=== PATIENT | male | born 1995 | race Caucasian/White ===

== ENCOUNTER 2017-02-14 20:03 | Emergency (ER) | payer OTHER ==
[~2017-02-14] VITALS: Ht 180.3 cm; Wt 80.9 kg
[~2017-02-14 20:03] MED LIST: BENT20TA PO; FERR325T3 PO; LIAL1.2T PO
[2017-02-14] MEDS ORDERED: OMEP20CA3 PO (20:12)
[2017-02-14] MEDS ORDERED: DICY10CA13 PO (20:12)
[2017-02-14] MEDS ORDERED: methylPREDNISolone INJ 125 MG/2 ML VIAL (J2930) IV ONE (21:30)
[2017-02-14] MEDS ORDERED: ONDANSETRON 4MG/2ML VIAL (J2405) IV ONE ×2 (21:30→23:00)
[2017-02-14 21:51] LABS: BASO # 0.1 K/mm3 (0.0-0.2); BASO % 0.7 % (0.0-1.0); EOS # 0.1 K/mm3 (0.0-0.50); EOS % 1.3 % (0.0-3.0); LARGE UNSTAINED CELL # 0.1 K/mm3 (0.0-0.4); LARGE UNSTAINED CELL % 0.9 % (0.0-4.0); LYMPH # 1.5 K/mm3 (1.5-6.5); LYMPH % 12.8 % (24.0-44.0); MEAN CORPUSCULAR HEMOGLOBIN 31.3 pg (27.0-33.0); MEAN CORPUSCULAR HGB CONC 34.5 g/dl (32.0-36.5); MEAN CORPUSCULAR VOLUME 90.5 fl (80.0-96.0); MONO # 0.8 K/mm3 (0.0-0.8); MONO % 7.1 % (0.0-5.0); NEUTROPHILS # 8.6 K/mm3 (1.8-7.7); NEUTROPHILS % 77.2 % (36.0-66.0); PLATELET COUNT, AUTOMATED 231 k/mm3 (150-450); RED CELL DISTRIBUTION WIDTH 12.9 % (11.5-14.5); WHITE BLOOD COUNT 11.1 K/mm3 (4.0-10.0)
[2017-02-14 22:14] LABS: ALBUMIN 4.5 GM/DL (3.2-5.2); ALBUMIN/GLOBULIN RATIO 1.45 (1.00-1.93); ALKALINE PHOSPHATASE 78 U/L (45-117); ALT/SGPT 46 U/L (12-78); AMYLASE 65 U/L (25-115); ANION GAP 5 MEQ/L (8-16); AST/SGOT 18 U/L (15-37); BLOOD UREA NITROGEN 15 MG/DL (7-18); CALCIUM LEVEL 9.8 MG/DL (8.5-10.1); CARBON DIOXIDE LEVEL 28 MEQ/L (21-32); CHLORIDE LEVEL 106 MEQ/L (98-107); CREATININE FOR GFR 0.94 MG/DL (0.70-1.30); GLUCOSE, FASTING 88 MG/DL (70-105); SODIUM LEVEL 139 MEQ/L (136-145); TOTAL PROTEIN 7.6 GM/DL (6.4-8.2)
[2017-02-14 22:32] LABS: ERYTHROCYTE SEDIMENTATION RATE 1 mm/hr (0-15)
[2017-02-14] MEDS ORDERED: KETOROLAC 30 MG/ML VIAL (J1885) IV ONE (23:00)
[2017-02-14 23:42] VITALS: BP 137/78
[2017-02-14] MEDS ORDERED: ZOFR4TAB3 PO (23:57)
[2017-02-14] MEDS ORDERED: ULTR50TA8 PO (23:57)
[2017-02-14] MEDS ORDERED: PRED20TA PO (23:58)
== END 2017-02-15 00:04 | disposition home or self-care (01) ==
LOC: M ED 20:03
DX: R10.84 Generalized abdominal pain (principal); R11.0 Nausea; K50.90 Crohn's disease, unspecified, without complications; Z79.899 Other long term (current) drug therapy
CPT/HCPCS: 80053; 81001; 82150; 83690; 85025; 85652; 86140; 96374; 96375; 96376; 99283; J1885; J2405; J2930

== ENCOUNTER 2017-02-25 11:07 | Inpatient (IN) | payer OTHER ==
[~2017-02-25] VITALS: Ht 180.3 cm; Wt 77.8 kg
[~2017-02-25 11:07] MED LIST changes: +DICY10CA13 PO; +OMEP20CA3 PO; +PRED20TA PO; +ULTR50TA8 PO; +ZOFR4TAB3 PO
[2017-02-25 12:11] LABS: MEAN CORPUSCULAR HEMOGLOBIN 31.8 pg (27.0-33.0); MEAN CORPUSCULAR HGB CONC 34.5 g/dl (32.0-36.5); MEAN CORPUSCULAR VOLUME 92.1 fl (80.0-96.0); RED CELL DISTRIBUTION WIDTH 12.8 % (11.5-14.5); WHITE BLOOD COUNT 11.2 K/mm3 (4.0-10.0)
[2017-02-25] MEDS ORDERED: LIAL1.2T PO (12:35)
[2017-02-25 12:55] LABS: METHADONE URINE NEGATIVE (NEGATIVE)
[2017-02-25 13:00] LABS: ALBUMIN 4.6 GM/DL (3.2-5.2); ALBUMIN/GLOBULIN RATIO 1.53 (1.00-1.93); ALKALINE PHOSPHATASE 76 U/L (45-117); ALT/SGPT 34 U/L (12-78); ANION GAP 9 MEQ/L (8-16); AST/SGOT 16 U/L (15-37); BILIRUBIN,DIRECT 0.4 MG/DL (0.0-0.2); BILIRUBIN,TOTAL 2.8 MG/DL (0.2-1.0); BLOOD UREA NITROGEN 17 MG/DL (7-18); CALCIUM LEVEL 9.9 MG/DL (8.5-10.1); CARBON DIOXIDE LEVEL 29 MEQ/L (21-32); CHLORIDE LEVEL 102 MEQ/L (98-107); CREATININE FOR GFR 1.14 MG/DL (0.70-1.30); GLUCOSE, FASTING 96 MG/DL (70-105); POTASSIUM SERUM 4.5 MEQ/L (3.5-5.1); SODIUM LEVEL 140 MEQ/L (136-145); TOTAL PROTEIN 7.6 GM/DL (6.4-8.2)
[2017-02-25 18:20] VITALS: BP 135/83
[2017-02-25] MEDS ORDERED: ACETAMINOPHEN TAB 650MG DOSE (2X325MG) PO PRN (18:30)
[2017-02-25] MEDS ORDERED: MOM 30ML SUSPENSION UDC PO PRN (18:30)
[2017-02-25] MEDS ORDERED: MAALOX 30 ML SUSP *UDC PO PRN (18:30)
[2017-02-25] MEDS ORDERED: traZODone 50 MG TAB PO PRN (18:30)
[2017-02-26 06:23] VITALS: BP 135/82
--- NOTE | 2017-02-26 09:37 | HPEPDOC ---
Medical History and Physical Date of Admission Feb 25, 2017 at 17:36 History and Physical PCP: [facility] ATTENDING: Dr. Earl Dillon HPI: 21yoM admitted to [facility] for MDD, being medically examined today. No acute medical complaints today. Patient continues to follow with Dr. Rucker for his Crohn's disease. States he had a recent flareup and was treated with course of prednisone which he recently discontinued. Patient states his symptoms are resolved. He denies abdominal pain, nausea, vomiting, diarrhea, constipation. He states he is eating and drinking normally. Denies any fevers, chills, weakness, fatigue, MILLS, CP, SOB, cough, palpitations, changes in bowel or bladder habits. PMHx: Crohn's disease-follows with Dr. Rucker Iron deficiency anemia GERD Depression History of SI Transgender PSHX: Colonoscopy 06/13/16-Crohn's with ileitis-Chaim SOCHX: Resides in: [place], from [facility] Marital Status: Single Kids: None Employment: Active duty Tobacco use: Denies ETOH: Denies Illicit Drugs: Denies IV Drug Use: Denies Tattoos done unprofessionally: Denies FAMHX: Mother: Alive, estranged Father: Alive, well Siblings: Alive, well Children: None Unexpected deaths due to medical reasons: None. ROS: As noted in HPI, otherwise 11pt ROS of systems reviewed and unremarkable. Patient states his Crohn's is controlled. PE: GEN: 21 yo M, appears stated age. Well-nourished, well developed. No acute distress. Alert and oriented x 3. Pleasant, interactive. HEENT: Normocephalic, atraumatic. Pupils are equal, round, and reactive to light. Extraocular movements are intact. No nystagmus appreciated. Sclera are nonicteric. Conjunctiva without injection. Nose midline. Nasal turbinates without bogginess. EACs both patent BL. TMs both visualized and banda with good cone of light, no bulging or erythema. No facial asymmetry. Moist mucous membranes. Dentition fair. Pharynx pink and moist, no cobblestoning. Neck supple , trachea midline. No lymphadenopathy or thyromegaly appreciated. CHEST: Regular rate and rhythm, +S1, +S2 LUNGS: Clear to auscultation bilaterally. No wheezes, rales, or rhonchi. Breathing appears symmetric and easy. Patient is speaking in full sentences. No accessory muscle use. ABD: Round, soft, non-tender, non-distended. +Bowel sounds throughout. No rebound or guarding. No costovertebral angle tenderness. EXT: Pulses 2+ bilaterally dorsalis pedis and radial. No lower extremity edema appreciated. SKIN: Aquilla, dry, warm. Capillary refill <2sec. No rashes. NEURO: Alert and oriented x 3. Cranial nerves III-XII are intact. No focal deficits appreciated. EKG: pending A&P: 21yoM admitted to [facility] for MDD 1. Psych. Plan per Psychiatry. EKG pending. 2. Crohn's disease. Follows with Dr. Rucker. Patient states has been controlled on Lialda 1.2 g 3 tabs once daily. 3. Leukocytosis. Patient is asymptomatic. Afebrile. Possibly related to recent course of prednisone. Recheck CBC in a.m. 4. Follow up with PCP on discharge. [facility]. 5. GERD. Continue Prilosec 40 mg daily. 6. History of iron deficiency anemia. Hemoglobin within normal limits. 7. Staff member Ramon present throughout exam. Vital Signs Vital Signs Date Time Temp Pulse Resp B/P (MAP) Pulse Ox O2 Delivery O2 Flow Rate FiO2 02/26/17 06:23 99.0 87 16 135/82 (99) 02/25/17 18:20 98 Room Air Laboratory Data Labs 24H Laboratory Tests 2 02/25/17 11:59: Anion Gap 9, Calcium Level 9.9, Aspartate Amino Transf (AST/SGOT) 16, Alanine Aminotransferase (ALT/SGPT) 34, Alkaline Phosphatase 76, Total Bilirubin 2.8H, Direct Bilirubin 0.4H, Total Protein 7.6, Albumin 4.6, Albumin/Globulin Ratio 1.53, Thyroid Stimulating Hormone (TSH) 1.220, Salicylates Level < 1.7L, Urine Amphetamines Screen NEGATIVE, Urine Benzodiazepines Screen NEGATIVE, Urine Opiates Screen NEGATIVE, Urine Methadone Screen NEGATIVE, Acetaminophen Level < 2.0L, Urine Barbiturates Screen NEGATIVE, Urine Phencyclidine Screen NEGATIVE, Urine Cocaine Metabolite Screen NEGATIVE, Urine Cannabinoids Screen NEGATIVE, Ethyl Alcohol Level 0.003 CBC/BMP Laboratory Tests 02/25/17 11:59 Red Blood Count 5.07, Mean Corpuscular Volume 92.1, Mean Corpuscular Hemoglobin 31.8, Mean Corpuscular Hemoglobin Concent 34.5, Red Cell Distribution Width 12.8 Home Medications Scheduled Mesalamine (Lialda) 1.2 Gm Tab, 3.6 GM PO DAILY Omeprazole (Omeprazole) 20 Mg Cap, 40 CAP PO DAILY Allergies Coded Allergies: No Known Allergies (Unverified , 02/25/17) Courtney Knowles Feb 26, 2017 09:36
[2017-02-26] MEDS: OMEPRAZOLE 20 MG CAP PO SCH (09:44)
[2017-02-26 18:10] VITALS: BP 131/79
--- NOTE | 2017-02-26 20:26 | MHHPE ---
DATE OF ADMISSION: 02/25/2017 CURRENT MEDICATIONS: None. CHIEF COMPLAINT: Depression with suicidal plan by hanging. HISTORY OF THE PRESENT ILLNESS: This is a 21-year-old white male, active duty [employer], who presented to [facility], crisis walk-in service, with depression and suicidal ideation. The patient has reported feeling depression recently. He felt lonely this weekend. Many of his friends are deployed overseas. His plans to have a transgender transformation are on hold. He just failed his PT test. He had a recent relapse of his Crohn's disease. The patient has been on two courses of prednisone, which was just weaned off this past weekend. All day Saturday he struggled imaging various scenarios of suicide and how his family would react to it. He did reach out to friends and get some social support. His appetite has been good recently. His weight is stable. His level of energy is good. His concentration is fine. He does get pleasure out of life. He is sleeping well at night, he reports. He denies a history of monroe. His mother has a history of bipolar disorder, but the patient himself has never had any manic episodes. He does have a history of gender dysphoria with plans for the gender transformation placed on hold recently, which has been frustrating for the patient. The patient had been hospitalized here at [facility] last July with depression and an overdose of alcohol and cough medicine. The patient was hospitalized briefly. He was not given antidepressants and was discharged back to [place]. The patient apparently went to outpatient mental health services for a number of months for psychotherapy but never received any psychotropics. The patient is resistant to such a trial while here in the hospital. The patient denies a history of panic attacks or agoraphobia. He denies a history of worry or obsessive-compulsive disorder (OCD) symptoms. He does report some social phobic symptoms, public speaking has always been hard for him. He dislikes groups and feels awkward and out of place. PAST PSYCHIATRIC HISTORY: Please see above. Patient denies any previous psychiatric history before joining the 2 years ago. MEDICAL HISTORY: Crohn's disease. SURGICAL HISTORY: Patient denies. ALLERGIES: Patient denies. LEGAL ISSUES: None noted. CHEMICAL DEPENDENCY: None aside from an overdose of alcohol and cough medicine. SOCIAL HISTORY: The patient was born and raised on [place]. His parents are . His mother is bipolar. He has no relationship with her. The patient was raised by his father. He has two brothers and one sister. Relationship with them is good. The patient was a good student in high school and joined the right out of high school. 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 FAMILY PSYCHIATRIC HISTORY: Mother is bipolar. MENTAL STATUS EXAMINATION: The patient is alert, oriented and cooperative. The patient has had recent suicidal ideations. The patient minimizes any depressive symptoms here today. He denies being a danger to self or others. He denies any psychotic symptoms. Grooming and hygiene appear quite good. No signs of panic attacks, obsessions or rituals. He does report some social phobic behavior. Insight and judgment appear fair. No signs of psychosis. No signs of impulsivity. No signs of cognitive deficits. ASSESSMENT: Patient resistant to any psychotropics, but might benefit from an selective serotonin reuptake inhibitor. The case will be coordinated with his outpatient therapist at [place]. The patient did have a recent course of prednisone, which might have contributed to depressive symptoms during the weaning off process. It is interesting to note the patient did not have any manic symptoms, however, while on the prednisone. This will be monitored and further evaluated. DIAGNOSES: Major depression, recurrent. Gender dysphoria, F64.1. PLAN: Encourage the patient to be involved in hospital milieu, 9.39 confirmed. Possible trial on selective serotonin reuptake inhibitor. The case will be coordinated with outpatient counselor.
--- NOTE | 2017-02-26 21:44 | ECGEPIP ---
Stationary ECG Study [facility] Test Date: 2017-02-26 Pat Name: TRAN OCHOA Department: Room: [place] [address] Gender: M Medical Transcription Supervisor: : [id number] Requested By: Courtney Knowles Order Number: [id number] Reading MD: Earl Dillon Measurements Intervals [place] Rate: 79 P: 62 [place]: 120 QRS: 80 QRSD: 86 T: 38 QT: 341 QTc: 391 Interpretive Statements SINUS RHYTHM POSSIBLE LEFT ATRIAL ENLARGEMENT Electronically Signed On 02-26-2017 21:44:23 EDT by Earl Dillon
[2017-02-27 06:48] VITALS: BP 127/79
[2017-02-27 07:24] LABS: MEAN CORPUSCULAR HEMOGLOBIN 31.3 pg (27.0-33.0); MEAN CORPUSCULAR HGB CONC 33.7 g/dl (32.0-36.5); RED CELL DISTRIBUTION WIDTH 12.7 % (11.5-14.5); WHITE BLOOD COUNT 10.2 K/mm3 (4.0-10.0)
[2017-02-27] MEDS: OMEPRAZOLE 20 MG CAP PO SCH (09:31)
[2017-02-27 18:30] VITALS: BP 127/72
[2017-02-28 06:45] VITALS: BP 124/66
[2017-02-28] MEDS: OMEPRAZOLE 20 MG CAP PO SCH (08:21)
--- NOTE | 2017-02-28 13:41 | MHIPN ---
DATE: 02/27/2017 VITAL SIGNS: Temperature 97.7, pulse 92, respirations 20, blood pressure 127/ 79. CURRENT MEDICATIONS: - trazodone 50 mg at bedtime as needed HISTORY OF PRESENT ILLNESS: Patient states that his mood is better. He feels more positive about the future. He is denying any suicidal ideation. His first sergeant visited. The Business Development Agent visited as well. He appreciates the support. His appetite is good. He slept well last night. He is resistant to taking any antidepressants. He is going to the groups though with some reluctance. He is encouraged to be involved in the milieu therapy. His therapist is contacted back at [facility]. She has not seen him for several months now and has no opinion regarding his safety or lethality potential. According to the referral records, however, [facility] staff were very concerned about his suicide potential at the time of referral. Patient himself minimizes any depressive symptoms and feels he does not need to be here. Patient had been on a prednisone steroid taper the weekend of admission which may have contributed to his dysphoria. Patient is encouraged to remain involved in the hospital milieu to monitor his mood and assess his safety profile. MENTAL STATUS EXAMINATION: Mood and affect appear fairly good. Anxiety is minimal. He denies being suicidal. Grooming and hygiene is quite good. He is not psychotic, not hearing voices, no paranoia or thought disorder. No signs of impulsivity, frustration tolerance appears fair. No signs of organicity. DIAGNOSIS: Major depression, recurrent. Gender dysphoria. PLAN: Encourage hospital milieu involvement. Patient needs to be monitored further for any potential signs of dangerousness in my opinion especially if he is resistant to a trial on psychotropics. DIANNE
[2017-02-28 18:00] VITALS: BP 132/81
[2017-03-01 06:31] VITALS: BP 125/72
[2017-03-01] MEDS: LIALDA 1.2 GM PO SCH (08:03)
[2017-03-01] MEDS: OMEPRAZOLE 20 MG CAP PO SCH (08:03)
[2017-03-01] MEDS ORDERED: hydrOXYzine 25 MG TAB PO PRN (10:45)
--- NOTE | 2017-03-01 10:59 | MHIPN ---
DATE: 02/28/2017 VITAL SIGNS: Temperature 98.1, pulse 86, respirations 18, blood pressure 124/66. CURRENT MEDICATIONS: None. HISTORY OF PRESENT ILLNESS: The patient states that he is going to all the groups. He states that his mood has been good. His appetite has been fine. He denies any sleep issues. He feels positive about the future. He is aware that the president has made comments that transgender individuals will not be able to receive sexual assignment surgery and/or be kept in the [employer]. [facility] staff called in to speak to the child welfare social worker staff concerned about this change and the development. The patient is aware of the news in this area. He reports that it is "not the end of the world." He feels hopeful about the future. Either way, he does have plans for the future. He plans to go to college, for example, and move on with his life. He still has no interest in taking any psychotropics. Chain of command meeting is scheduled for Saturday. MENTAL STATUS EXAMINATION: The patient is awake, alert and cooperative. Affect appears reasonably good. He denies any depression. Anxiety is minimal. Not hearing voices. No signs of paranoia or thought disorder. Grooming and hygiene is good. No signs of dangerousness. ASSESSMENT: The patient denies any major reactions to the negative news about transgender individuals. He appears to be coping reasonably well. DIAGNOSES: 1. Major depression, recurrent. 2. Gender dysphoria. PLAN: Involve in hospital milieu. Chain of command meeting scheduled for Saturday with tentative discharge afterwards if the patient does well over the weekend.
[2017-03-01 18:00] VITALS: BP 123/71
[2017-03-02 06:40] VITALS: BP 121/63
[2017-03-02] MEDS: LIALDA 1.2 GM PO SCH (09:54)
[2017-03-02] MEDS: OMEPRAZOLE 20 MG CAP PO SCH (09:54)
--- NOTE | 2017-03-02 13:50 | IPN ---
DATE: 03/01/2017 VITAL SIGNS: Temperature 97.7, pulse 70, respirations 16, blood pressure 125/72. CURRENT MEDICATIONS: - trazodone 50 mg nightly as needed HISTORY OF THE PRESENT ILLNESS: The patient still refuses any antidepressants. He has been quite social in the milieu. He is attending groups. He states his mood is much improved. Denies any suicidal ideation. He has been frustrated by the lack of progress regarding the sexual assignment treatment plan. 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 The patient states that he is positive about his future whether he gets this treatment in the or after he is discharged. He has goals of going back to school at [employer] on [address]. The patient states he does have issues with dysphoria about his gender issues at times, especially on weekends. We discussed various strategies and how to cope with this. The patient will be prescribed a medium dose of Atarax to help as an as needed. He was encouraged to maintain treatment at [facility] upon discharge and to keep an open mind about a possible trial on an antidepressant/antianxiety agent. MENTAL STATUS EXAMINATION: The patient is alert, oriented and cooperative. He reports some mild anxiety. Dysphoria is minimal. He is not overtly depressed, not suicidal. Judgment appears good. Grooming and hygiene appear quite good. No signs of dangerousness. ASSESSMENT: The patient continues to wish to deal with his issues psychologically and not pharmacologically. DIAGNOSIS: Major depression, recurrent. Gender dysphoria. PLAN: Continue treatment in the hospital milieu. Chain of command meeting scheduled for Saturday. Patient given Atarax as needed for anxiety, if needed.
[2017-03-02 18:19] VITALS: BP 121/70
[2017-03-03 06:12] VITALS: BP 114/66
[2017-03-03] MEDS: OMEPRAZOLE 20 MG CAP PO SCH (07:49)
[2017-03-03] MEDS: LIALDA 1.2 GM PO SCH (07:49)
[2017-03-03 18:28] VITALS: BP 136/73
[2017-03-04 06:38] VITALS: BP 128/70
[2017-03-04] MEDS: OMEPRAZOLE 20 MG CAP PO SCH (08:06)
[2017-03-04] MEDS: LIALDA 1.2 GM PO SCH (08:07)
--- NOTE | 2017-03-05 13:24 | MHDS ---
DATE OF ADMISSION: 02/25/2017 DATE OF DISCHARGE: 03/04/2017 VITAL SIGNS: Temperature 98.1, pulse 88, respirations 19, blood pressure 128/70. LABORATORY DATA: CBC and differential normal except for elevated WBC at 10.2. Chem survey within normal limits except for elevated total bilirubin at 2.8 and direct bilirubin at 0.4. Toxicology screen was negative. MEDICATIONS ON DISCHARGE: None. DISCHARGE DIAGNOSES: 1. Adjustment disorder with depressed mood. 2. Gender dysphoria. CHIEF COMPLAINT: Depression with suicidal thoughts of hanging. 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 He had felt depressed over the previous 24 hours with thoughts of hanging himself. The patient had felt lonely this previous weekend prior to admission, many of his friends were deployed overseas. His plans to have a transgender transformation have been on hold. This is frustrating for him. He just failed his PT test. He just had a recent relapse of his Crohn's disease. The patient had just been on two courses of prednisone, which was just weaned off the previous weekend prior to admission, which may have contributed to his depression. He did reach out to friends for help and was brought to the walk in crisis service and then sent to the emergency room. He states that his appetite has been good recently. His weight is stable. His level of energy was good. His concentration is fine. He reports getting pleasure out of life. He sleeps well at night. No history of monroe. He does have a history of gender dysphoria, which is his major precipitating stressor. The karine was hospitalized here at [facility] last July with depression and overdose of alcohol and cough medicine. The patient was hospitalized briefly but was not given medication and was discharged back to [facility]. He saw the therapist for many months but eventually therapy was terminated. PROGRESS ON THE UNIT: The patient was upset about being hospitalized, claiming that it was not necessary. The patient did find the hospital milieu therapy program helpful; however, he did have good attendance and socialized well with his peers. He showed no signs of depression while on the unit. He denied any suicidal ideation or plans. He was hopeful about the future. There was a report on the news that the president had plans to discharge transgender troops. The patient was aware of the news but stated that it was not "the end of the world." He felt hopeful about the future, whether in the [employer] or without. He does plans to go back to college and get his Bachelor's degree once he leaves the . He was informed by the [facility] medical staff that he has an appointment in March with the journeyman molder regarding the transgender procedure. He felt optimistic about this. He refused any psychotropics and did not appear to require any. He was given Atarax as needed, but claims that it was not well tolerated. His appetite was good on the unit. He slept well. He reached maximal hospital benefit with plans for discharge. MENTAL STATUS EXAMINATION: At the time of discharge, mood and affect appeared good. Affect was bright. He had full range of affect. He had no suicidal thoughts. No homicidal thoughts either. He was not psychotic. Not hearing voices. Not paranoid or thought disorder. Grooming and hygiene was quite good. PLAN: Followup at [facility].
== END 2017-03-04 10:15 | disposition home or self-care (01) | DRG 881 ==
LOC: M ED 11:07 → M ED INP 17:36 → M PSY 18:22
PROVIDERS: ADMIT Psychiatry & Neurology Psychiatry; ATTEND Psychiatry & Neurology Psychiatry
DX: F43.21 Adjustment disorder with depressed mood (principal); K50.90 Crohn's disease, unspecified, without complications; F64.0 Transsexualism; D50.9 Iron deficiency anemia, unspecified; K21.9 Gastro-esophageal reflux disease without esophagitis; Z79.899 Other long term (current) drug therapy

== ENCOUNTER 2017-06-03 14:28 | Outpatient (RCR) | payer OTHER | END 2017-06-04 | LOC: M ST 14:28 | PROVIDERS: ATTEND Family Medicine | DX: Z51.89 Encounter for other specified aftercare (principal); F64.9 Gender identity disorder, unspecified | CPT/HCPCS: 92507; 92524; G9171; G9172 ==

== ENCOUNTER 2017-07-03 14:00 | Outpatient (RCR) | payer OTHER | END 2017-07-04 | LOC: M ST 14:00 | PROVIDERS: ATTEND Family Medicine | DX: F64.9 Gender identity disorder, unspecified (principal) ==

== ENCOUNTER 2017-07-11 14:01 | Outpatient (RCR) | payer OTHER | END 2017-08-04 | LOC: M ST 14:01 | DX: F64.9 Gender identity disorder, unspecified (principal) | CPT/HCPCS: 92507 ==

== ENCOUNTER 2017-08-07 14:07 | Outpatient (RCR) | payer OTHER | END 2017-09-04 | LOC: M ST 14:07 | DX: F64.9 Gender identity disorder, unspecified (principal) | CPT/HCPCS: 92507 ==

== ENCOUNTER 2017-09-11 13:59 | Outpatient (RCR) | payer OTHER | END 2017-10-02 | LOC: M ST 13:59 | DX: F64.9 Gender identity disorder, unspecified (principal) | CPT/HCPCS: 92507 ==

== ENCOUNTER 2017-09-20 06:50 | Emergency (ER) | payer OTHER ==
[2017-09-20] MEDS: NS 1,000 ML IV (08:00)
[2017-09-20 08:11] LABS: BASO # 0.1 10^3/uL (0.0-0.2); BASO % 0.5 % (0.0-1.0); EOS # 0.1 10^3/uL (0.0-0.50); EOS % 0.5 % (0.0-3.0); HEMATOCRIT 38.2 % (42.0-52.0); HEMOGLOBIN 13.1 g/dl (14.0-18.0); IMMATURE GRANULOCYTE % 0.4 % (0-3.0); LYMPH # 0.9 10^3/uL (1.5-6.5); LYMPH % 7.4 % (24.0-44.0); MEAN CORPUSCULAR HEMOGLOBIN 30.9 pg (27.0-33.0); MEAN CORPUSCULAR HGB CONC 34.3 g/dl (32.0-36.5); MEAN CORPUSCULAR VOLUME 90.1 fl (80.0-96.0); MONO # 0.7 10^3/uL (0.0-0.8); MONO % 5.9 % (0.0-5.0); NEUTROPHILS # 10.6 10^3/uL (1.8-7.7); NEUTROPHILS % 85.3 % (36.0-66.0); PLATELET COUNT, AUTOMATED 275 10^3/uL (150-450); RED BLOOD COUNT 4.24 10^6/uL (4.30-6.10); RED CELL DISTRIBUTION WIDTH 12.5 % (11.5-14.5); WHITE BLOOD COUNT 12.5 10^3/uL (4.0-10.0)
[2017-09-20 08:15] LABS: KETONE, URINE AUTO RFX NEGATIVE (NEGATIVE); LEUKOCYTE ESTERASE UR AUTO RFX NEGATIVE (NEGATIVE); MUCUS, URINE RFX SMALL (NEGATIVE); NITRITE, URINE AUTO RFX NEGATIVE (NEGATIVE); RBC, URINE AUTO RFX 1 /HPF (0-3); SPECIFIC GRAVITY UR AUTO RFX 1.016 (1.002-1.035); SQUAM EPITHELIAL CELL UR AURFX 0 /HPF (0-6); WBC, URINE AUTO RFX 1 /HPF (0-3)
[2017-09-20 08:28] LABS: ALBUMIN 4.5 GM/DL (3.2-5.2); ALBUMIN/GLOBULIN RATIO 1.29 (1.00-1.93); ALKALINE PHOSPHATASE 52 U/L (45-117); ALT/SGPT 33 U/L (12-78); ANION GAP 7 MEQ/L (8-16); AST/SGOT 17 U/L (7-37); BILIRUBIN,DIRECT 0.2 MG/DL (0.0-0.2); BLOOD UREA NITROGEN 14 MG/DL (7-18); CALCIUM LEVEL 9.2 MG/DL (8.5-10.1); CARBON DIOXIDE LEVEL 28 MEQ/L (21-32); CHLORIDE LEVEL 104 MEQ/L (98-107); CREATININE FOR GFR 0.79 MG/DL (0.70-1.30); GLOMERULAR FILTRATION RATE > 60.0 (>60); GLUCOSE, FASTING 99 MG/DL (70-100); LIPASE 114 U/L (73-393); POTASSIUM SERUM 4.2 MEQ/L (3.5-5.1); SODIUM LEVEL 139 MEQ/L (136-145)
[2017-09-20] MEDS ORDERED: ISOVUE-370 76% 100ML VIAL (Q9967) As Ordered (08:41)
== END 2017-09-20 09:50 | disposition home or self-care (01) ==
LOC: M ED 06:50
DX: A08.4 Viral intestinal infection, unspecified (principal); K50.90 Crohn's disease, unspecified, without complications; F41.9 Anxiety disorder, unspecified; K21.9 Gastro-esophageal reflux disease without esophagitis; Z79.899 Other long term (current) drug therapy
CPT/HCPCS: Q9967

== ENCOUNTER 2017-12-22 22:55 | Inpatient (IN) | payer OTHER ==
[2017-12-22 23:41] LABS: HEMOGLOBIN 12.7 g/dl (13.5-17.5); MEAN CORPUSCULAR HGB CONC 34.3 g/dl (32.0-36.5); MEAN CORPUSCULAR VOLUME 90.2 fl (80.0-96.0); PLATELET COUNT, AUTOMATED 260 10^3/uL (150-450); RED CELL DISTRIBUTION WIDTH 11.9 % (11.5-14.5); WHITE BLOOD COUNT 11.6 10^3/uL (4.0-10.0)
[2017-12-23 00:06] LABS: AMPHETAMINES LEVEL URINE NEGATIVE (NEGATIVE); BARBITURATES URINE NEGATIVE (NEGATIVE); BENZODIAZEPINES URINE NEGATIVE (NEGATIVE); CANNABINOIDS URINE NEGATIVE (NEGATIVE); COCAINE METABOLITE URINE NEGATIVE (NEGATIVE); METHADONE URINE NEGATIVE (NEGATIVE); OPIATES URINE NEGATIVE (NEGATIVE); PHENCYCLIDINE URINE NEGATIVE (NEGATIVE)
[2017-12-23 00:15] LABS: ALBUMIN 4.1 GM/DL (3.2-5.2); ALBUMIN/GLOBULIN RATIO 1.24 (1.00-1.93); ALKALINE PHOSPHATASE 54 U/L (45-117); ALT/SGPT 36 U/L (12-78); ANION GAP 6 MEQ/L (8-16); AST/SGOT 18 U/L (7-37); BILIRUBIN,DIRECT 0.1 MG/DL (0.0-0.2); BILIRUBIN,TOTAL 0.5 MG/DL (0.2-1.0); BLOOD UREA NITROGEN 8 MG/DL (7-18); CARBON DIOXIDE LEVEL 29 MEQ/L (21-32); CHLORIDE LEVEL 108 MEQ/L (98-107); CREATININE FOR GFR 0.83 MG/DL (0.70-1.30); ETHYL ALCOHOL (ETHANOL) 0.141 % (0.000-0.010); GLOMERULAR FILTRATION RATE > 60.0 (>60); GLUCOSE, FASTING 109 MG/DL (70-100); POTASSIUM SERUM 4.2 MEQ/L (3.5-5.1); SALICYLATE LEVEL < 1.7 MG/DL (5.0-30.0); SODIUM LEVEL 143 MEQ/L (136-145); TOTAL PROTEIN 7.4 GM/DL (6.4-8.2)
[2017-12-23 00:18] LABS: ACETAMINOPHEN LEVEL < 2.0 UG/ML (10.0-30.0)
[2017-12-23] MEDS ORDERED: traZODone 50 MG TAB PO (03:00)
[2017-12-23] MEDS ORDERED: LORazepam 2 MG TAB PO (03:00)
[2017-12-23] MEDS ORDERED: MOM 30ML SUSPENSION UDC PO (03:00)
[2017-12-23] MEDS ORDERED: ACETAMINOPHEN TAB 650MG DOSE (2X325MG) PO (03:00)
[2017-12-23] MEDS ORDERED: MAALOX 30 ML SUSP *UDC PO (03:00)
[2017-12-23] MEDS: MULTIVITAMINS/MINERALS THERAP 1 TAB PO (08:23)
[2017-12-23] MEDS: THIAMINE 100 MG TAB PO ×2 (08:23→20:06)
[2017-12-23] MEDS: FOLIC ACID 1 MG TAB PO (08:23)
[2017-12-23] MEDS: ESTRADIOL 1 MG TAB PO ×2 (08:24→20:06)
[2017-12-23] MEDS: SPIRONOLACTONE 50 MG TAB PO ×2 (08:24→20:06)
[2017-12-23] MEDS ORDERED: ESTRADIOL 1 MG TAB PO ×3 (09:00)
[2017-12-24] MEDS: THIAMINE 100 MG TAB PO (07:56)
[2017-12-24] MEDS: SPIRONOLACTONE 50 MG TAB PO (07:56)
[2017-12-24] MEDS: FOLIC ACID 1 MG TAB PO (07:56)
[2017-12-24] MEDS: MULTIVITAMINS/MINERALS THERAP 1 TAB PO (07:56)
[2017-12-24] MEDS: ESTRADIOL 1 MG TAB PO (07:57)
[2017-12-24 09:29] LABS: HEMATOCRIT 38.7 % (42.0-52.0); HEMOGLOBIN 13.1 g/dl (13.5-17.5); MEAN CORPUSCULAR HEMOGLOBIN 30.8 pg (27.0-33.0); MEAN CORPUSCULAR HGB CONC 33.9 g/dl (32.0-36.5); MEAN CORPUSCULAR VOLUME 91.1 fl (80.0-96.0); PLATELET COUNT, AUTOMATED 283 10^3/uL (150-450); RED BLOOD COUNT 4.25 10^6/uL (4.30-6.10); RED CELL DISTRIBUTION WIDTH 12.1 % (11.5-14.5); WHITE BLOOD COUNT 11.9 10^3/uL (4.0-10.0)
== END 2017-12-24 10:25 | disposition home or self-care (01) | DRG 881 ==
LOC: M ED 22:55 → M ED INP 12-23 02:53 → M PSY 12-23 03:17
DX: F43.21 Adjustment disorder with depressed mood (principal); F10.10 Alcohol abuse, uncomplicated; F64.9 Gender identity disorder, unspecified; K21.9 Gastro-esophageal reflux disease without esophagitis; D50.9 Iron deficiency anemia, unspecified; K52.9 Noninfective gastroenteritis and colitis, unspecified; F41.9 Anxiety disorder, unspecified; D72.829 Elevated white blood cell count, unspecified; Z79.899 Other long term (current) drug therapy

== ENCOUNTER 2018-01-22 13:53 | Inpatient (IN) | payer OTHER ==
[2018-01-22 17:33] LABS: HEMATOCRIT 38.2 % (42.0-52.0); HEMOGLOBIN 13.3 g/dl (13.5-17.5); MEAN CORPUSCULAR HEMOGLOBIN 31.1 pg (27.0-33.0); MEAN CORPUSCULAR HGB CONC 34.8 g/dl (32.0-36.5); MEAN CORPUSCULAR VOLUME 89.5 fl (80.0-96.0); PLATELET COUNT, AUTOMATED 304 10^3/uL (150-450); RED BLOOD COUNT 4.27 10^6/uL (4.30-6.10); RED CELL DISTRIBUTION WIDTH 12.3 % (11.5-14.5); WHITE BLOOD COUNT 13.2 10^3/uL (4.0-10.0)
[2018-01-22 17:51] LABS: AMPHETAMINES LEVEL URINE NEGATIVE (NEGATIVE); BARBITURATES URINE NEGATIVE (NEGATIVE); BENZODIAZEPINES URINE NEGATIVE (NEGATIVE); CANNABINOIDS URINE NEGATIVE (NEGATIVE); COCAINE METABOLITE URINE NEGATIVE (NEGATIVE); METHADONE URINE NEGATIVE (NEGATIVE); OPIATES URINE NEGATIVE (NEGATIVE); PHENCYCLIDINE URINE NEGATIVE (NEGATIVE)
[2018-01-22 18:03] LABS: ALBUMIN 4.3 GM/DL (3.2-5.2); ALBUMIN/GLOBULIN RATIO 1.26 (1.00-1.93); ALKALINE PHOSPHATASE 61 U/L (45-117); ALT/SGPT 44 U/L (12-78); ANION GAP 10 MEQ/L (8-16); AST/SGOT 23 U/L (7-37); BILIRUBIN,DIRECT 0.2 MG/DL (0.0-0.2); BILIRUBIN,TOTAL 0.7 MG/DL (0.2-1.0); BLOOD UREA NITROGEN 17 MG/DL (7-18); CALCIUM LEVEL 9.2 MG/DL (8.5-10.1); CARBON DIOXIDE LEVEL 28 MEQ/L (21-32); CHLORIDE LEVEL 103 MEQ/L (98-107); CREATININE FOR GFR 0.94 MG/DL (0.70-1.30); ETHYL ALCOHOL (ETHANOL) < 0.003 % (0.000-0.010); GLOMERULAR FILTRATION RATE > 60.0 (>60); GLUCOSE, FASTING 93 MG/DL (70-100); POTASSIUM SERUM 4.6 MEQ/L (3.5-5.1); SALICYLATE LEVEL < 1.7 MG/DL (5.0-30.0); SODIUM LEVEL 141 MEQ/L (136-145); TOTAL PROTEIN 7.7 GM/DL (6.4-8.2)
[2018-01-22 18:44] LABS: ACETAMINOPHEN LEVEL < 2.0 UG/ML (10.0-30.0)
[2018-01-22] MEDS: ESTRADIOL 1 MG TAB PO (21:00)
[2018-01-22] MEDS ORDERED: AQUAPHOR PR (23:30)
[2018-01-22] MEDS ORDERED: NITROGLYCERIN PR (23:30)
[2018-01-22] MEDS ORDERED: OLANZapine ORAL DISINTEGRATING TAB 5MG PO (23:30)
[2018-01-22] MEDS ORDERED: MOM 30ML SUSPENSION UDC PO (23:30)
[2018-01-22] MEDS ORDERED: ACETAMINOPHEN TAB 650MG DOSE (2X325MG) PO (23:30)
[2018-01-22] MEDS ORDERED: MAALOX 30 ML SUSP *UDC PO (23:30)
[2018-01-23] MEDS: ESTRADIOL 1 MG TAB PO ×2 (08:54→21:15)
[2018-01-23] MEDS: SPIRONOLACTONE 50 MG TAB PO ×2 (08:54→21:15)
[2018-01-23] MEDS: SERTRALINE HCL 50 MG TAB PO (12:40)
[2018-01-24 07:33] LABS: HEMATOCRIT 35.5 % (42.0-52.0); HEMOGLOBIN 12.6 g/dl (13.5-17.5); MEAN CORPUSCULAR HEMOGLOBIN 31.3 pg (27.0-33.0); MEAN CORPUSCULAR HGB CONC 35.5 g/dl (32.0-36.5); MEAN CORPUSCULAR VOLUME 88.3 fl (80.0-96.0); PLATELET COUNT, AUTOMATED 265 10^3/uL (150-450); RED BLOOD COUNT 4.02 10^6/uL (4.30-6.10); RED CELL DISTRIBUTION WIDTH 12.3 % (11.5-14.5); WHITE BLOOD COUNT 9.6 10^3/uL (4.0-10.0)
[2018-01-24 07:44] LABS: REASON FOR REVIEW WBC/LEUKEMIA/BLAST; SLIDE REVIEW Report; SOURCE PERIPHERAL SMEAR
[2018-01-24 08:08] LABS: FERRITIN 157 NG/ML (26-388); IRON (FE) 131 UG/DL (65-175); PERCENT SATURATION 34.7 % (19.7-50.0); TOTAL IRON BINDING CAPACITY 377 UG/DL (250-450)
[2018-01-24] MEDS: SPIRONOLACTONE 50 MG TAB PO ×2 (08:19→20:57)
[2018-01-24] MEDS: SERTRALINE HCL 50 MG TAB PO (08:19)
[2018-01-24] MEDS: ESTRADIOL 1 MG TAB PO ×2 (08:20→20:57)
[2018-01-24 10:44] LABS: VITAMIN B12 LEVEL 509 PG/ML (247-911)
[2018-01-24 10:48] LABS: FOLATE 11.9 NG/ML (>5.4)
[2018-01-24] MEDS: traZODone 50 MG TAB PO (20:57)
[2018-01-25] MEDS: ESTRADIOL 1 MG TAB PO ×2 (10:06→22:04)
[2018-01-25] MEDS: SERTRALINE HCL 50 MG TAB PO (10:07)
[2018-01-25] MEDS: SPIRONOLACTONE 50 MG TAB PO ×2 (10:07→22:04)
[2018-01-25] MEDS: MIRTAZAPINE 7.5MG PER 1/2 TABLET PO (22:04)
[2018-01-26] MEDS: ESTRADIOL 1 MG TAB PO ×2 (08:11→21:40)
[2018-01-26] MEDS: SERTRALINE HCL 50 MG TAB PO (08:11)
[2018-01-26] MEDS: SPIRONOLACTONE 50 MG TAB PO ×2 (08:11→21:40)
[2018-01-26] MEDS: MIRTAZAPINE 7.5MG PER 1/2 TABLET PO (21:40)
[2018-01-27] MEDS: ESTRADIOL 1 MG TAB PO ×2 (09:01→21:44)
[2018-01-27] MEDS: SERTRALINE HCL 50 MG TAB PO (09:01)
[2018-01-27] MEDS: SPIRONOLACTONE 50 MG TAB PO ×2 (09:01→21:45)
[2018-01-27] MEDS: MIRTAZAPINE 7.5MG PER 1/2 TABLET PO (21:44)
[2018-01-28] MEDS: SPIRONOLACTONE 50 MG TAB PO (08:22)
[2018-01-28] MEDS: ESTRADIOL 1 MG TAB PO (08:22)
[2018-01-28] MEDS: SERTRALINE HCL 50 MG TAB PO (08:22)
== END 2018-01-28 12:15 | disposition home or self-care (01) | DRG 881 ==
LOC: M ED 13:53 → M ED INP 19:57 → M PSY 21:02
DX: F43.21 Adjustment disorder with depressed mood (principal); K50.00 Crohn's disease of small intestine without complications; F64.9 Gender identity disorder, unspecified; F10.10 Alcohol abuse, uncomplicated; F60.3 Borderline personality disorder; D64.9 Anemia, unspecified; K60.2 Anal fissure, unspecified; Z81.8 Family history of other mental and behavioral disorders; Z81.0 Family history of intellectual disabilities; Z81.3 Family history of other psychoactive substance abuse and dependence; Z79.899 Other long term (current) drug therapy